=== PATIENT | male | born 1965 | race Caucasian/White ===

== ENCOUNTER 2019-03-17 11:56 | Emergency (ER) | payer MEDICAID, OTHER ==
[~2019-03-17] VITALS: Ht 180.3 cm; Wt 106.5 kg
[2019-03-17 12:39] LABS: BASOPHILS # (AUTO) 0.1 X10'3 (0-0.2); BASOPHILS % (AUTO) 1.1 % (0-1); EOSINOPHILS # (AUTO) 0.1 X10'3 (0-0.9); EOSINOPHILS % (AUTO) 1.6 % (0-6); HEMATOCRIT 48.3 % (42.0-52.0); HEMOGLOBIN 16.4 g/dl (14.0-17.9); LYMPHOCYTES # (AUTO) 2.3 X10'3 (1.1-4.8); LYMPHOCYTES % (AUTO) 33.5 % (21-51); MEAN CORPUSCULAR VOLUME 88.3 FL (78-98); MEAN PLATELET VOLUME 8.4 FL (7.4-10.4); MONOCYTES # (AUTO) 0.6 X10'3 (0-0.9); MONOCYTES % (AUTO) 8.2 % (2-12); NEUTROPHILS # (AUTO) 3.9 X10'3 (1.8-7.7); NEUTROPHILS % (AUTO) 55.6 % (42-75); PLATELET COUNT 236 X10'3 (140-440); RED BLOOD COUNT 5.47 X10'6 (4.70-6.10); RED CELL DISTRIBUTION WIDTH 13.9 % (11.5-14.5)
[2019-03-17 12:51] LABS: ALANINE AMINOTRANSFERASE 49 U/L (12-78); ALBUMIN 3.9 G/DL (3.4-5.0); ALKALINE PHOSPHATASE 99 IU/L (46-116); ANION GAP 9 (8-16); ASPARTATE AMINO TRANSFERASE 28 U/L (10-37); BILIRUBIN,TOTAL 0.7 MG/DL (0.1-1.0); BLOOD UREA NITROGEN 11 MG/DL (7-18); CHLORIDE 105 MMOL/L (99-107); GLUCOSE 95 MG/DL (70-104); POTASSIUM 3.9 MMOL/L (3.5-5.1); SODIUM 141 MMOL/L (135-145); TOTAL CARBON DIOXIDE 27.3 MMOL/L (24-32); TOTAL PROTEIN 7.9 G/DL (6.4-8.2); eGFR 78 ML/MIN
--- NOTE | 2019-03-17 13:29 | NUR ---
has hx of stent placement having sharp L lat lower chest has been going on for about a week and it is getting worse as time goes on
[2019-03-17] MEDS ORDERED: mag hydrox/Alum hydrox/simeth 30ml oral suspension PO ONE (13:50)
[2019-03-17] MEDS ORDERED: acetaminophen 325mg tablet PO ONE ×2 (13:50→13:55)
[2019-03-17] MEDS ORDERED: LIDOcaine Viscous 15ml cup MM PRN (13:50)
[2019-03-17 16:09] VITALS: BP 142/98
== END 2019-03-17 16:13 | disposition home or self-care (01) ==
LOC: ER 11:57
DX: R07.89 Other chest pain (principal); R05 Cough; R10.9 Unspecified abdominal pain; I25.10 Atherosclerotic heart disease of native coronary artery without angina pectoris; Z79.899 Other long term (current) drug therapy; Z98.61 Coronary angioplasty status
CPT/HCPCS: 36415; 71045; 80053; 84484; 85025; 93005; 99284

== ENCOUNTER 2019-12-05 08:59 | Emergency (ER) | payer MEDICAID, OTHER ==
[~2019-12-05] VITALS: Ht 180.3 cm; Wt 110.0 kg
[2019-12-05] MEDS ORDERED: ondansetron/PF 4mg/2ml inj IV ONE (09:40)
[2019-12-05] MEDS ORDERED: morphine 4 MG/ML inj SYRINge IV ONE (09:40)
[2019-12-05] MEDS ORDERED: normal saline 1000ML IV soln IVB ONE (09:45)
[2019-12-05] MEDS ORDERED: propofol 10mg/ml 20ml vial IV ONE (09:45)
[2019-12-05] MEDS ORDERED: propofol 1000mg/100ml bottle 100 ML IV PRN (09:49)
[2019-12-05 12:27] VITALS: BP 141/96
== END 2019-12-05 12:32 | disposition home or self-care (01) ==
LOC: ER 08:59
DX: S43.005A Unspecified dislocation of left shoulder joint, initial encounter (principal); S42.142A Displaced fracture of glenoid cavity of scapula, left shoulder, initial encounter for closed fracture; S42.152A Displaced fracture of neck of scapula, left shoulder, initial encounter for closed fracture; I25.10 Atherosclerotic heart disease of native coronary artery without angina pectoris; Z98.890 Other specified postprocedural states; W01.0XXA Fall on same level from slipping, tripping and stumbling without subsequent striking against object, initial encounter; Y93.01 Activity, walking, marching and hiking; Y92.89 Other specified places as the place of occurrence of the external cause; Y99.8 Other external cause status
CPT/HCPCS: 23650; 73020; 73030; 96361; 96374; 96375; 99152; 99285; J2270; J2405; J7030; 94760; 99284

== ENCOUNTER 2023-03-15 16:44 | Inpatient (IN) | payer MEDICAID ==
[~2023-03-15] VITALS: Ht 182.9 cm; Wt 103.4 kg
[~2023-03-15 16:44] MED LIST: heparin 10,000 units/1 ML INJ ONE; papaverine 30 mg/ml 2ml inj. ONE
[2023-03-15] MEDS ORDERED: heparin, porcine-25,000 units/D5-250ml premix IV ONE (17:30)
[2023-03-15] MEDS ORDERED: heparin 1,000 units/ml 10ml inj ONE (17:30)
[2023-03-15 17:38] LABS: BASOPHILS # (AUTO) 0.1 X10'3 (0-0.2); BASOPHILS % (AUTO) 0.5 % (0-1); EOSINOPHILS # (AUTO) 0.1 X10'3 (0-0.9); EOSINOPHILS % (AUTO) 0.6 % (0-6); HEMATOCRIT 46.6 % (42.0-52.0); LYMPHOCYTES % (AUTO) 19.4 % (21-51); MEAN CORPUSCULAR HEMOGLOBIN 29.6 PG (27.0-31.0); MEAN CORPUSCULAR HGB CONC 34.3 g/dL (33.0-36.5); MEAN CORPUSCULAR VOLUME 86.2 FL (78-98); MEAN PLATELET VOLUME 9.6 FL (7.4-10.4); MONOCYTES # (AUTO) 0.8 X10'3 (0-0.9); MONOCYTES % (AUTO) 8.4 % (2-12); NEUTROPHILS # (AUTO) 7.2 X10'3 (1.8-7.7); NEUTROPHILS % (AUTO) 71.1 % (42-75); PLATELET COUNT 165 X10'3 (140-440); RED CELL DISTRIBUTION WIDTH 13.5 % (11.5-14.5); WHITE BLOOD COUNT 10.1 X10'3 (4.5-11.0)
[2023-03-15 17:51] LABS: ALANINE AMINOTRANSFERASE 186 U/L (12-78); ALBUMIN 3.5 G/DL (3.4-5.0); ALKALINE PHOSPHATASE 146 IU/L (46-116); ANION GAP 9 (8-16); ASPARTATE AMINO TRANSFERASE 282 U/L (10-37); BILIRUBIN,TOTAL 0.7 MG/DL (0.1-1.0); BLOOD UREA NITROGEN 10 MG/DL (7-18); BUN/CREATININE RATIO 10.4 (10.0-20.0); CALCIUM 9.1 MG/DL (8.5-10.1); CHLORIDE 96 MMOL/L (99-107); CREATININE 0.96 MG/DL (0.60-1.10); GLUCOSE 392 MG/DL (70-104); POTASSIUM 3.8 MMOL/L (3.5-5.1); SODIUM 132 MMOL/L (135-145); TOTAL CARBON DIOXIDE 26.7 MMOL/L (24-32); TOTAL PROTEIN 7.1 G/DL (6.4-8.2); eCRCL 92 ML/MIN; eGFR 80 ML/MIN
[2023-03-15 17:58] LABS: PRO BRAIN NATRIURETIC PEPTIDE 841 PG/ML (0-125)
[2023-03-15] MEDS ORDERED: heparin 10,000 units/1 ML INJ IV SCH (18:45)
[2023-03-15] MEDS ORDERED: heparin 10,000 units/1 ML INJ IV ONE ×2 (18:45→19:10)
[2023-03-15] MEDS ORDERED: aspirin 81mg tab.chew PO ONE (18:50)
[2023-03-15 18:59] LABS: MAGNESIUM 1.9 MG/DL (1.5-2.4)
--- NOTE | 2023-03-15 19:05 | NUR ---
Heparing bolus 4000 units per cardiac heparin protocol. Heparin drip running at 1000 units/hr per protocol
[2023-03-15] MEDS ORDERED: ringers solution, lacted 1,000 ML IV ONE ×2 (19:10)
[2023-03-15] MEDS ORDERED: NO HOME MEDS (19:10)
[2023-03-15] MEDS ORDERED: iohexol 350MG/ML 100ml bottle IV ONE (19:17)
[2023-03-15 19:35] LABS: INR 0.9 INR
[2023-03-15] MEDS ORDERED: magnesium Cl slow-release 64mg tablet PO PRN (19:35)
[2023-03-15] MEDS ORDERED: magnesium hydroxide 30ml (MOM) UD suspension PO PRN (19:35)
[2023-03-15] MEDS ORDERED: ondansetron/PF 4mg/2ml inj IV PRN (19:35)
[2023-03-15] MEDS ORDERED: HYDROcodone/acetaminophen 10/325mg tab PO PRN (19:35)
[2023-03-15] MEDS ORDERED: acetaminophen 325mg tablet PO PRN (19:35)
[2023-03-15] MEDS ORDERED: mag hydrox/Alum hydrox/simeth 30ml oral suspension PO PRN (19:35)
[2023-03-15] MEDS ORDERED: HYDROcodone/acetaminophen 5mg/325mg tablet PO PRN (19:35)
[2023-03-15] MEDS ORDERED: magnesium 2GM in 50ml NS 50 ML IV PRN (19:35)
[2023-03-15] MEDS ORDERED: potassium Cl 40MEQ/1/2NS 520ml 520 ML IV PRN (19:35)
[2023-03-15] MEDS ORDERED: potassium Cl 20 mEq SR tablet PO PRN ×2 (19:35)
[2023-03-15] MEDS ORDERED: magnesium 4gm in 100ml NS 100 ML IV PRN (19:35)
[2023-03-15 19:37] LABS: APTT 25 SECONDS (22-32); PROTHROMBIN TIME 9.9 SECONDS (9.0-12.0)
[2023-03-15] MEDS ORDERED: MESSAGE TO PHARMACY PO ONE (19:40)
[2023-03-15] MEDS ORDERED: dextrose 50%-water 50ml dispensing syringe IV PRN ×2 (19:40)
[2023-03-15] MEDS ORDERED: glucagon, human recombinant 1mg kit SUBCUT PRN (19:40)
[2023-03-15] MEDS ORDERED: DEXTROSE 15 GM of carb/4 tabs (each vial/BOTTLE has 4 tablets) PO PRN ×2 (19:40)
[2023-03-15] MEDS: heparin 25,000 UNIT/250ml bag 250 ML IV PRN (19:54)
[2023-03-15] MEDS: K and/or MAG REPLACEMENT MC SCH (19:59)
[2023-03-15] MEDS: docusate sod 100mg capsule PO SCH (20:00)
--- NOTE | 2023-03-15 20:10 | NUR ---
Dr Lewis, Card Punching Machine Operator, at patient bedside. Plan to take patient to lab support tech tomorrow AM at 1000.
[2023-03-15] MEDS ORDERED: metoprolol tartrate 50mg tablet PO SCH (20:20)
--- NOTE | 2023-03-15 20:23 | NUR ---
Per Dr. Lewis, pt will go to cathode builder tomorrow at 10:00 am
[2023-03-15 21:01] LABS: BILIRUBIN,URINE NEGATIVE (Neg); CLARITY,URINE CLEAR (Clear); COLOR,URINE STRAW (Yellow); GLUCOSE, URINE >=1000 mg/dl (Neg); LEUKOCYTE ESTERASE ,URINE NEGATIVE (Neg); NITRITES, URINE NEGATIVE (Neg); OCCULT BLOOD,URINE TRACE-INTACT (Neg); PROTEIN,URINE NEGATIVE (Neg); UROBILINOGEN,URINE 0.2 E.U/dL (0.2-1.0)
[2023-03-15 21:06] LABS: UA COLLECTION TYPE OTHER
[2023-03-15 21:07] LABS: HEMOGLOBIN A1C 11.9 % (4.5-6.2)
[2023-03-15 21:07] LABS: KETONES,URINE >80 mg/dl (Neg)
[2023-03-15 21:08] LABS: RBC,URINE 0-2 /HPF (0-2); SQUAMOUS EPITHELIAL CELL,UR NONE SEEN /LPF (FEW); WBC,URINE 0-4 /HPF (0-4)
[2023-03-15 21:09] LABS: BACTERIA,URINE FEW /HPF (Neg)
[2023-03-15 21:15] LABS: URINE AMPHETAMINE SCREEN NEGATIVE (Neg); URINE BARBITUATE SCREEN NEGATIVE (Neg); URINE BENZODIAZEPINES SCREEN NEGATIVE (Neg); URINE CANNABINOID SCREEN POSITIVE (Neg); URINE COCAINE SCREEN NEGATIVE (Neg); URINE METHADONE SCREEN NEGATIVE (Neg); URINE OPIATE SCREEN NEGATIVE (Neg); URINE PHENCYCLIDINE SCREEN NEGATIVE (Neg)
--- NOTE | 2023-03-15 21:31 | NUR ---
Patient in room ED 5. I have received report from Jillian AWAD and had the opportunity to ask questions and awaiting patients arrival
[2023-03-15 22:00] VITALS: BP 121/89; PULSE 82; RESP 14; TEMP 97.6; O2SAT 96
[2023-03-15] MEDS: insulin glargine (Lantus) pen - multi-dose SQ SCH (22:13)
[2023-03-15] MEDS: atorvastatin 20mg tablet PO SCH (22:16)
--- NOTE | 2023-03-15 22:55 | NUR ---
patients troponin [id number] Dereck remy.
[2023-03-15] MEDS: insulin Lispro (HumaLOG) vial - multi-dose SQ SCH (23:40)
[2023-03-16] VITALS (15 sets, daily range): BP systolic 83–129; BP diastolic 53–82; PULSE 59–90; RESP 9–18; TEMP 97.5–97.9; O2SAT 92–98
[2023-03-16 01:07] LABS: APTT 32 SECONDS (22-32)
[2023-03-16] MEDS: heparin 10,000 units/1 ML INJ IV PRN ×2 (01:43→22:02)
--- NOTE | 2023-03-16 04:31 | NUR ---
patient resting comfortABLY NO COMPLAINTS
--- NOTE | 2023-03-16 06:00 | NUR ---
st elevation noted on tele Addendum: 03/16/23 at 0721 by Linn Flowers RN Amended: Links added.
--- NOTE | 2023-03-16 06:15 | NUR ---
Patient in room PCU 3012B. I have received report from NOC RN Ana Cristina and had the opportunity to ask questions and assume patient care.Pt is awake, resting comfortably in bed and is aware of upcoming procedure at 1000.
[2023-03-16 06:47] LABS: BASOPHILS # (AUTO) 0.1 X10'3 (0-0.2); BASOPHILS % (AUTO) 0.6 % (0-1); EOSINOPHILS # (AUTO) 0.1 X10'3 (0-0.9); EOSINOPHILS % (AUTO) 0.9 % (0-6); HEMATOCRIT 44.1 % (42.0-52.0); HEMOGLOBIN 14.8 g/dl (14.0-17.9); LYMPHOCYTES # (AUTO) 2.5 X10'3 (1.1-4.8); LYMPHOCYTES % (AUTO) 30.2 % (21-51); MEAN CORPUSCULAR HEMOGLOBIN 29.2 PG (27.0-31.0); MEAN CORPUSCULAR HGB CONC 33.5 g/dL (33.0-36.5); MEAN PLATELET VOLUME 10.6 FL (7.4-10.4); MONOCYTES # (AUTO) 0.9 X10'3 (0-0.9); MONOCYTES % (AUTO) 10.8 % (2-12); NEUTROPHILS # (AUTO) 4.8 X10'3 (1.8-7.7); NEUTROPHILS % (AUTO) 57.5 % (42-75); PLATELET COUNT 149 X10'3 (140-440); RED BLOOD COUNT 5.07 X10'6 (4.70-6.10); RED CELL DISTRIBUTION WIDTH 13.3 % (11.5-14.5); WHITE BLOOD COUNT 8.4 X10'3 (4.5-11.0)
--- NOTE | 2023-03-16 06:51 | NUR ---
Problems reprioritized. Patient report given, questions answered & plan of care reviewed with Linn AWAD. patient prepared for lab technologist today at 10am..
[2023-03-16 07:06] LABS: ALANINE AMINOTRANSFERASE 146 U/L (12-78); ALBUMIN 3.1 G/DL (3.4-5.0); ALBUMIN/GLOBULIN RATIO 0.8 (1.1-1.5); ALKALINE PHOSPHATASE 141 IU/L (46-116); ANION GAP 6 (8-16); ASPARTATE AMINO TRANSFERASE 174 U/L (10-37); BLOOD UREA NITROGEN 6 MG/DL (7-18); BUN/CREATININE RATIO 6.7 (10.0-20.0); CALCIUM 8.9 MG/DL (8.5-10.1); CHLORIDE 100 MMOL/L (99-107); CREATININE 0.89 MG/DL (0.60-1.10); GLUCOSE 264 MG/DL (70-104); MAGNESIUM 1.9 MG/DL (1.5-2.4); POTASSIUM 3.6 MMOL/L (3.5-5.1); SODIUM 136 MMOL/L (135-145); TOTAL CARBON DIOXIDE 29.7 MMOL/L (24-32); TOTAL PROTEIN 6.8 G/DL (6.4-8.2); eCRCL 99 ML/MIN; eGFR 88 ML/MIN
[2023-03-16] MEDS: atorvastatin 20mg tablet PO SCH (08:00)
[2023-03-16] MEDS ORDERED: aspirin 81mg, enteric-coated 1 TAB TABLET.DR PO SCH (08:00)
[2023-03-16] MEDS: K and/or MAG REPLACEMENT MC SCH ×2 (08:00→20:00)
[2023-03-16] MEDS: metoprolol tartrate 12.5mg (1/2 tablet) PO SCH ×2 (08:00→20:00)
[2023-03-16] MEDS: docusate sod 100mg capsule PO SCH ×2 (08:00→20:00)
[2023-03-16] MEDS: insulin Lispro (HumaLOG) vial - multi-dose SQ SCH ×3 (08:33→18:04)
[2023-03-16] MEDS ORDERED: midazolam 1 mg/ML 2ml injection ONE ×2 (09:09→10:21)
[2023-03-16] MEDS ORDERED: LIDOcaine 1% (10mg/ml)w/preservative inj. 20ml MDV ONE (09:09)
[2023-03-16] MEDS ORDERED: iohexol 350 MG/ML 50ML vial IV ONE (09:09)
[2023-03-16] MEDS ORDERED: fentaNYL/PF 50MCG/1 ML 2ML syringe ONE (09:09)
[2023-03-16] MEDS ORDERED: iohexol 350MG/ML 100ml bottle IV ONE (09:09)
[2023-03-16] MEDS ORDERED: heparin 1,000unit/ml 10ml vial 10 ML ONE (09:09)
[2023-03-16] MEDS ORDERED: nitroGLYCERIN 500mcg/5mL D5W 0 ML IV ONE (09:12)
[2023-03-16] MEDS ORDERED: tirofiban 12.5mg in NS 250mL 0 ML IV ONE (09:12)
--- NOTE | 2023-03-16 09:35 | NUR ---
Patient report given at bedside to 2 RNs from laboratory courier. Pt was NPO since midnight. Questions answered. Pt taken to laboratory courier by wheelchair for cardiac cath to be done by Dr. Lewis. Pt is A&Ox4, in no apparent distress.
--- NOTE | 2023-03-16 10:59 | NUR ---
Per EMR pt with T2DM, current A1c 11.9%. Attempted visit with pt at bedside however pt out if room and in labor expediter per EMR. Pt would benefit from DM education as able. Will continue to follow. Addendum: 03/16/23 at [address] Amended: Links added.
--- NOTE | 2023-03-16 11:17 | NUR ---
Rec'd phone call from DELMI Rice in chemical processing laborer. Pt is going to ICU s/p cardiac cath. Will send belongings to ICU.
[2023-03-16] MEDS ORDERED: heparin 25,000 UNIT/250ml bag 250 ML IV ONE (11:43)
[2023-03-16] MEDS ORDERED: acetaminophen 325mg tablet PO PRN ×2 (12:40)
[2023-03-16] MEDS ORDERED: magnesium hydroxide 30ml (MOM) UD suspension PO PRN (12:40)
[2023-03-16] MEDS ORDERED: OXAZEpam 15mg capsule PO PRN (12:40)
[2023-03-16] MEDS ORDERED: proCHLORperazine 10 MG/2 ml inj IV PRN (12:40)
[2023-03-16] MEDS ORDERED: nitroGLYCERIN 0.4mg SUBLingual tab SL PRN (12:40)
[2023-03-16] MEDS ORDERED: morphine 10mg/ml inj. IV PRN (12:40)
[2023-03-16] MEDS: normal saline 1000ml 1,000 ML IV SCH (12:45)
[2023-03-16] MEDS: aspirin 81mg tab.chew PO SCH (14:00)
[2023-03-16] MEDS: HYDROcodone/acetaminophen 10/325mg tab PO PRN ×2 (14:02→20:16)
[2023-03-16] MEDS ORDERED: MESSAGE TO PHARMACY PO ONE (14:05)
[2023-03-16] MEDS ORDERED: dextrose 50%-water 50ml dispensing syringe IV PRN ×2 (14:05)
[2023-03-16] MEDS ORDERED: glucagon, human recombinant 1mg kit SUBCUT PRN (14:05)
[2023-03-16] MEDS ORDERED: DEXTROSE 15 GM of carb/4 tabs (each vial/BOTTLE has 4 tablets) PO PRN ×2 (14:05)
--- NOTE | 2023-03-16 18:30 | NUR ---
Patient in room ICU 2040. I have received report from Andres AWAD and had the opportunity to ask questions and assume patient care.
--- NOTE | 2023-03-16 19:00 | NUR ---
Spoke with Dr Moreno regarding lopressor. Order to hold Lopressor if BP systolic below 100.
[2023-03-16] MEDS ORDERED: heparin 10,000 units/1 ML INJ IJ SCH (20:00)
[2023-03-16] MEDS: cyclobenzaprine 10mg tablet PO PRN (20:16)
[2023-03-16] MEDS: insulin glargine (Lantus) pen - multi-dose SQ SCH ×2 (20:23→20:42)
[2023-03-17] VITALS (24 sets, daily range): BP systolic 85–119; BP diastolic 50–83; PULSE 54–91; RESP 10–22; O2SAT 92–97
[2023-03-17] MEDS: heparin 25,000 UNIT/250ml bag 250 ML IV PRN ×2 (04:09→21:03)
[2023-03-17 05:03] LABS: BASOPHILS % (AUTO) 0.7 % (0-1); EOSINOPHILS # (AUTO) 0.1 X10'3 (0-0.9); EOSINOPHILS % (AUTO) 1.1 % (0-6); HEMATOCRIT 44.4 % (42.0-52.0); LYMPHOCYTES # (AUTO) 2.4 X10'3 (1.1-4.8); MEAN CORPUSCULAR HEMOGLOBIN 29.5 PG (27.0-31.0); MEAN CORPUSCULAR HGB CONC 33.8 g/dL (33.0-36.5); MEAN CORPUSCULAR VOLUME 87.3 FL (78-98); MEAN PLATELET VOLUME 10.3 FL (7.4-10.4); MONOCYTES # (AUTO) 0.6 X10'3 (0-0.9); MONOCYTES % (AUTO) 8.9 % (2-12); NEUTROPHILS # (AUTO) 3.9 X10'3 (1.8-7.7); NEUTROPHILS % (AUTO) 55.3 % (42-75); PLATELET COUNT 147 X10'3 (140-440); RED BLOOD COUNT 5.09 X10'6 (4.70-6.10); RED CELL DISTRIBUTION WIDTH 13.7 % (11.5-14.5); WHITE BLOOD COUNT 7.1 X10'3 (4.5-11.0)
[2023-03-17 05:19] LABS: ALANINE AMINOTRANSFERASE 119 U/L (12-78); ALBUMIN 2.9 G/DL (3.4-5.0); ALBUMIN/GLOBULIN RATIO 0.7 (1.1-1.5); ALKALINE PHOSPHATASE 153 IU/L (46-116); ANION GAP 5 (8-16); ASPARTATE AMINO TRANSFERASE 85 U/L (10-37); BILIRUBIN,TOTAL 0.8 MG/DL (0.1-1.0); BLOOD UREA NITROGEN 8 MG/DL (7-18); BUN/CREATININE RATIO 9.5 (10.0-20.0); CHLORIDE 99 MMOL/L (99-107); CREATININE 0.84 MG/DL (0.60-1.10); GLUCOSE 233 MG/DL (70-104); POTASSIUM 3.7 MMOL/L (3.5-5.1); SODIUM 133 MMOL/L (135-145); TOTAL CARBON DIOXIDE 28.8 MMOL/L (24-32); TOTAL PROTEIN 6.9 G/DL (6.4-8.2); eCRCL 105 ML/MIN; eGFR > 90 ML/MIN
[2023-03-17 05:24] LABS: CHOL/HDL RATIO 4.8 (0.00-4.99); CHOLESTEROL 282 MG/DL (0-200); HDL CHOLESTEROL 59 MG/DL (35-60); LDL CHOLESTEROL 164 MG/DL (50-100); MAGNESIUM 1.8 MG/DL (1.5-2.4); TRIGLYCERIDES 247 MG/DL (20-135)
[2023-03-17] MEDS: heparin 10,000 units/1 ML INJ IV PRN ×2 (05:26→16:29)
--- NOTE | 2023-03-17 06:14 | NUR ---
Problems reprioritized. Patient report given, questions answered & plan of care reviewed with Andres AWAD.
[2023-03-17] MEDS: atorvastatin 20mg tablet PO SCH (07:32)
[2023-03-17] MEDS: aspirin 81mg tab.chew PO SCH (07:32)
[2023-03-17] MEDS: docusate sod 100mg capsule PO SCH ×2 (07:32→20:15)
[2023-03-17] MEDS ORDERED: cefazolin/dext.iso 2gm/50ml 50 ML IV ONE (08:20)
[2023-03-17] MEDS ORDERED: MESSAGE TO PHARMACY IJ ONE (08:20)
[2023-03-17] MEDS ORDERED: dextrose 50%-water 50ml dispensing syringe IV PRN (08:20)
[2023-03-17] MEDS: insulin Lispro (HumaLOG) vial - multi-dose SQ SCH ×3 (08:35→20:30)
[2023-03-17] MEDS: metoprolol tartrate 12.5mg (1/2 tablet) PO SCH ×2 (08:36→19:26)
[2023-03-17] MEDS: K and/or MAG REPLACEMENT MC SCH ×2 (08:39→20:00)
[2023-03-17] MEDS ORDERED: MESSAGE TO NURSING PO ONE (10:00)
[2023-03-17] MEDS ORDERED: ringers solution, lacted 1,000 ML IV ONE (17:10)
[2023-03-17 17:29] LABS: ABG HCO3 26.4 mmol/L (22.0-26.0); ABG PCO2 (T) 35.3 mmHg (35.0-48.0); ABG PH (T) 7.488 (7.340-7.440); ABG PO2 (T) 58.9 mmHg (75.0-100.0); ALLEN'S TEST POSITIVE; FCOHb 1.4 % (0.0-3.9); FHHb 5.9 % (0.0-5.0); FLOW 0 L/min; FMetHb 0.1 % (0.0-1.5); FO2Hb 92.6 % (94-97); MODE ROOM AIR; TOTAL HEMOGLOBIN 15.4 G/dl (14.0-17.9)
[2023-03-17] MEDS: cyclobenzaprine 10mg tablet PO PRN (18:40)
[2023-03-17] MEDS: HYDROcodone/acetaminophen 10/325mg tab PO PRN (18:40)
[2023-03-17] MEDS: mupirocin 2% nasal ointment 1gm UD NS SCH (19:26)
[2023-03-17] MEDS: insulin glargine (Lantus) pen - multi-dose SQ SCH (20:28)
--- NOTE | 2023-03-17 21:05 | NUR ---
heparin gtt running at 1700 units/hr at 1800. adjustment made for 2100 ptt now at 1600units/hour
--- NOTE | 2023-03-17 22:14 | NUR ---
bath completed per policy
[2023-03-18] VITALS (27 sets, daily range): BP systolic 83–139; BP diastolic 43–94; PULSE 56–102; RESP 11–26; TEMP 97.8–98.5; O2SAT 94–100
[2023-03-18] MEDS: HYDROcodone/acetaminophen 10/325mg tab PO PRN ×2 (00:08→04:33)
[2023-03-18] MEDS: heparin 25,000 UNIT/250ml bag 250 ML IV PRN (00:10)
[2023-03-18 03:14] LABS: BASOPHILS # (AUTO) 0.1 X10'3 (0-0.2); BASOPHILS % (AUTO) 0.8 % (0-1); EOSINOPHILS # (AUTO) 0.1 X10'3 (0-0.9); EOSINOPHILS % (AUTO) 1.4 % (0-6); HEMATOCRIT 41.5 % (42.0-52.0); LYMPHOCYTES # (AUTO) 2.7 X10'3 (1.1-4.8); LYMPHOCYTES % (AUTO) 34.6 % (21-51); MEAN CORPUSCULAR HEMOGLOBIN 29.4 PG (27.0-31.0); MEAN CORPUSCULAR HGB CONC 33.7 g/dL (33.0-36.5); MEAN CORPUSCULAR VOLUME 87.2 FL (78-98); MEAN PLATELET VOLUME 9.8 FL (7.4-10.4); MONOCYTES # (AUTO) 0.7 X10'3 (0-0.9); MONOCYTES % (AUTO) 9.4 % (2-12); NEUTROPHILS # (AUTO) 4.1 X10'3 (1.8-7.7); NEUTROPHILS % (AUTO) 53.8 % (42-75); PLATELET COUNT 133 X10'3 (140-440); RED BLOOD COUNT 4.76 X10'6 (4.70-6.10); RED CELL DISTRIBUTION WIDTH 13.8 % (11.5-14.5); WHITE BLOOD COUNT 7.7 X10'3 (4.5-11.0)
[2023-03-18 03:25] LABS: ALANINE AMINOTRANSFERASE 88 U/L (12-78); ALBUMIN 2.7 G/DL (3.4-5.0); ALBUMIN/GLOBULIN RATIO 0.7 (1.1-1.5); ALKALINE PHOSPHATASE 158 IU/L (46-116); ANION GAP 6 (8-16); ASPARTATE AMINO TRANSFERASE 43 U/L (10-37); BILIRUBIN,TOTAL 0.6 MG/DL (0.1-1.0); BLOOD UREA NITROGEN 10 MG/DL (7-18); BUN/CREATININE RATIO 11.8 (10.0-20.0); CALCIUM 8.6 MG/DL (8.5-10.1); CHLORIDE 101 MMOL/L (99-107); CREATININE 0.85 MG/DL (0.60-1.10); GLUCOSE 230 MG/DL (70-104); MAGNESIUM 1.8 MG/DL (1.5-2.4); POTASSIUM 3.3 MMOL/L (3.5-5.1); SODIUM 135 MMOL/L (135-145); TOTAL CARBON DIOXIDE 27.9 MMOL/L (24-32); TOTAL PROTEIN 6.5 G/DL (6.4-8.2); eCRCL 104 ML/MIN; eGFR > 90 ML/MIN
[2023-03-18] MEDS ORDERED: MESSAGE TO NURSING PO ONE ×4 (04:00→05:30)
[2023-03-18] MEDS: normal saline 1000ml 1,000 ML IV SCH (04:45)
[2023-03-18] MEDS ORDERED: insulin glargine (Lantus) pen - multi-dose SQ PRN (05:30)
[2023-03-18] MEDS ORDERED: gabapentin 400mg capsule PO ONE (05:30)
[2023-03-18] MEDS ORDERED: cefazolin/dext.iso 2gm/50ml 50 ML IV ONE (05:30)
[2023-03-18] MEDS ORDERED: famotidine 20mg tablet PO ONE (06:00)
[2023-03-18] MEDS ORDERED: LORazepam 2 mg/ml vial IV ONE (06:00)
--- NOTE | 2023-03-18 06:30 | NUR ---
Pre op checklist done, consents obtained, required info placed on chart.
[2023-03-18] MEDS ORDERED: BUPIVACAINE liposomal/PF 13.3 MG/ML vial IM ONE ×2 (06:34→07:00)
[2023-03-18] MEDS ORDERED: epiNEPHrine 1 mg/ml inj ONE (06:34)
[2023-03-18] MEDS ORDERED: BUPIVAcaine 0.5% inj/PF 30 ML ONE (06:34)
[2023-03-18] MEDS ORDERED: ceFAZolin 1000mg inj ONE ×3 (06:34→14:53)
[2023-03-18] MEDS ORDERED: papaverine 30 mg/ml 2ml inj. ICAR ONE (07:00)
[2023-03-18] MEDS ORDERED: ceFAZolin 1000mg inj IR ONE (07:00)
[2023-03-18] MEDS ORDERED: epiNEPHrine 1 MG/ML 1 ml ampule **BRONCH ONLY SQ ONE (07:00)
[2023-03-18] MEDS ORDERED: BUPIVAcaine 0.5% inj/PF 30 ml vial IJ ONE (07:00)
[2023-03-18] MEDS ORDERED: heparin 10,000 units/1 ML INJ IV ONE (07:00)
[2023-03-18] MEDS: insulin Lispro (HumaLOG) vial - multi-dose SQ SCH (07:16)
[2023-03-18] MEDS: metoprolol tartrate 12.5mg (1/2 tablet) PO SCH ×2 (07:32→20:00)
[2023-03-18] MEDS: atorvastatin 20mg tablet PO SCH (07:33)
[2023-03-18] MEDS: K and/or MAG REPLACEMENT MC SCH ×2 (07:33→20:00)
[2023-03-18] MEDS: docusate sod 100mg capsule PO SCH ×2 (07:33→20:00)
[2023-03-18] MEDS ORDERED: SUfentanil 50mcg/ml 1ml amp IV ONE ×2 (07:36→09:55)
[2023-03-18] MEDS ORDERED: MIDAZolam 1 MG/ML 5ML VIAL ONE (07:36)
[2023-03-18] MEDS ORDERED: propofol inj 20 ML IV ONE (07:36)
[2023-03-18] MEDS ORDERED: rocuronium 10mg/ml inj IV ONE ×4 (07:37→10:56)
[2023-03-18] MEDS: mupirocin 2% nasal ointment 1gm UD NS SCH ×2 (07:39→20:39)
[2023-03-18] MEDS: aspirin 81mg tab.chew PO SCH (08:00)
--- NOTE | 2023-03-18 08:05 | NUR ---
Pt. to CVOR with OR crew. Pt's son and mother in to see pt. briefly prior to CVOR crew arrival.
[2023-03-18] MEDS ORDERED: DOBUTamine/D5W 500mg/250ml premix IV ONE (08:07)
[2023-03-18] MEDS ORDERED: albumin (Human) 5% 250ml BOTTLE IV ONE (08:07)
[2023-03-18] MEDS ORDERED: amiodarone 50MG/ML inj IV ONE (08:07)
[2023-03-18] MEDS ORDERED: LIDOcaine 2% (20mg/ml) 5ml vial ONE (08:07)
[2023-03-18] MEDS ORDERED: protamine sulf. 10mg/ml inj. IV ONE (08:07)
[2023-03-18] MEDS ORDERED: sevoflurane 250ml liquid IH ONE (08:07)
[2023-03-18] MEDS ORDERED: INSULIN R 100 UNIT in NS 100ML (1 UNIT/1 ML) BAG IV ONE (08:07)
[2023-03-18] MEDS ORDERED: NORepinephrine 8 MG in NS 250 ML BAG (32 mcg/ml) IV ONE (08:07)
[2023-03-18 09:40] LABS: ABG BASE EXCESS -0.4 mmol/L (-2.0-2.0); ABG HCO3 26.3 mmol/L (22.0-26.0); ABG OXYGEN SATURATION 99.2 % (94-97); ABG PCO2 51.3 mmHg (35.0-48.0); ABG PH 7.328 (7.340-7.440); CL (ABG) 103 mmol/L (99-107); FCOHb 0.2 % (0.0-3.9); FHHb 0.8 % (0.0-5.0); FMetHb 0.3 % (0.0-1.5); FO2Hb 98.7 % (94-97); GLUCOSE (ABG) 187 mg/dl (70-104); IONIZED CA (ABG) 1.17 mmol/L (1.10-1.30); K (ABG) 3.6 mmol/L (3.5-5.1); TOTAL HEMOGLOBIN 14.3 G/dl (14.0-17.9)
[2023-03-18] MEDS ORDERED: gelatin sponge, absorbable (Gelfoam 100) sponge TP ONE (10:14)
[2023-03-18 10:32] LABS: ACT @ 1.70 U 265 SEC (193-297); ACT @ 2.84 U 364 SEC (260-420); BASELINE ACT 148 SEC (101-148); PATIENT WEIGHT 91.0k KG
[2023-03-18] MEDS ORDERED: albumin (human) 25% 100 ML IV solution IV ONE (12:00)
[2023-03-18] MEDS ORDERED: aminocaproic acid 250 MG/1 ML inj. ONE (12:00)
[2023-03-18] MEDS ORDERED: SODIUM BICARBONATE IV ONE (12:00)
[2023-03-18] MEDS ORDERED: methylPREDNISolone sod. succ. 500mg inj ONE (12:00)
[2023-03-18] MEDS ORDERED: calcium chloride 100 MG/1 ML inj IV ONE (12:00)
[2023-03-18] MEDS ORDERED: heparin 1,000 units/ml 10ml inj ONE (12:00)
[2023-03-18] MEDS ORDERED: mannitol 12.5gm/50mL VIAL IV ONE (12:00)
[2023-03-18] MEDS ORDERED: D5W IV ONE (12:00)
[2023-03-18 12:52] LABS: ABG BASE EXCESS 0.8 mmol/L (-2.0-2.0); ABG HCO3 24.4 mmol/L (22.0-26.0); ABG PCO2 35.4 mmHg (35.0-48.0); ABG PH 7.457 (7.340-7.440); ABG PO2 384.5 mmHg (75.0-100.0); CL (ABG) 100 mmol/L (99-107); FCOHb 0.2 % (0.0-3.9); FMetHb 0.3 % (0.0-1.5); FO2Hb 98.5 % (94-97); GLUCOSE (ABG) 129 mg/dl (70-104); IONIZED CA (ABG) 0.93 mmol/L (1.10-1.30); K (ABG) 3.4 mmol/L (3.5-5.1); TOTAL HEMOGLOBIN 10.4 G/dl (14.0-17.9)
[2023-03-18 13:31] LABS: ABG BASE EXCESS VENOUS -1.1 mmol/L (-2.0 - 2.0); ABG HCO3 VENOUS 23.7 mmol/L (21.0-28.0); ABG OXYGEN SATURATION VENOUS 87.4 % (75 - 99 %); ABG PCO2 VENOUS 40.3 mmHg (41.0-54.0); ABG PH (VENOUS) 7.388 (7.310-7.450); ABG PO2 VENOUS 51.2 mmHg (25.0-35.0); CL (ABG) 103 mmol/L (99-107); FCOHb VENOUS 0.3 %; FHHb VENOUS 12.6 %; FO2Hb VENOUS 87.1 %; GLUCOSE (ABG) 153 mg/dl (70-104); IONIZED CA (ABG) 1.03 mmol/L (1.10-1.30); K (ABG) 3.2 mmol/L (3.5-5.1); TOTAL HEMOGLOBIN 11.1 G/dl (14.0-17.9)
[2023-03-18 14:38] LABS: ABG BASE EXCESS -2.7 mmol/L (-2.0-2.0); ABG HCO3 21.9 mmol/L (22.0-26.0); ABG OXYGEN SATURATION 99.2 % (94-97); ABG PCO2 37.5 mmHg (35.0-48.0); ABG PH 7.385 (7.340-7.440); ABG PO2 428.1 mmHg (75.0-100.0); CL (ABG) 105 mmol/L (99-107); FCOHb 0.2 % (0.0-3.9); FHHb 0.8 % (0.0-5.0); FMetHb 0.1 % (0.0-1.5); FO2Hb 98.9 % (94-97); GLUCOSE (ABG) 186 mg/dl (70-104); IONIZED CA (ABG) 1.02 mmol/L (1.10-1.30); K (ABG) 2.9 mmol/L (3.5-5.1)
[2023-03-18 14:56] LABS: ABG HCO3 21.1 mmol/L (22.0-26.0); ABG PCO2 38.8 mmHg (35.0-48.0); ABG PH 7.354 (7.340-7.440); ABG PO2 411.4 mmHg (75.0-100.0); CL (ABG) 106 mmol/L (99-107); FCOHb 0.2 % (0.0-3.9); FMetHb 0.1 % (0.0-1.5); FO2Hb 98.7 % (94-97); GLUCOSE (ABG) 192 mg/dl (70-104); IONIZED CA (ABG) 1.03 mmol/L (1.10-1.30); K (ABG) 3.6 mmol/L (3.5-5.1); TOTAL HEMOGLOBIN 10.6 G/dl (14.0-17.9)
[2023-03-18 15:09] LABS: ABG BASE EXCESS -1.6 mmol/L (-2.0-2.0); ABG HCO3 24.3 mmol/L (22.0-26.0); ABG OXYGEN SATURATION 99.3 % (94-97); ABG PCO2 46.2 mmHg (35.0-48.0); ABG PH 7.339 (7.340-7.440); ABG PO2 444.5 mmHg (75.0-100.0); CL (ABG) 108 mmol/L (99-107); FCOHb 0.2 % (0.0-3.9); FHHb 0.7 % (0.0-5.0); FMetHb 0.3 % (0.0-1.5); FO2Hb 98.8 % (94-97); GLUCOSE (ABG) 210 mg/dl (70-104); IONIZED CA (ABG) 1.01 mmol/L (1.10-1.30); TOTAL HEMOGLOBIN 10.6 G/dl (14.0-17.9)
[2023-03-18 15:53] LABS: ABG BASE EXCESS -4.7 mmol/L (-2.0-2.0); ABG HCO3 20.3 mmol/L (22.0-26.0); ABG OXYGEN SATURATION 99.3 % (94-97); ABG PCO2 37.1 mmHg (35.0-48.0); ABG PH 7.356 (7.340-7.440); ABG PO2 353.5 mmHg (75.0-100.0); CL (ABG) 106 mmol/L (99-107); FCOHb 0.3 % (0.0-3.9); FHHb 0.7 % (0.0-5.0); FMetHb 0.3 % (0.0-1.5); FO2Hb 98.7 % (94-97); GLUCOSE (ABG) 202 mg/dl (70-104); IONIZED CA (ABG) 1.04 mmol/L (1.10-1.30); K (ABG) 3.7 mmol/L (3.5-5.1); TOTAL HEMOGLOBIN 10.3 G/dl (14.0-17.9)
[2023-03-18] MEDS ORDERED: midazolam 1 mg/ML 2ml injection ONE (15:58)
[2023-03-18 16:45] LABS: ABG BASE EXCESS -2.5 mmol/L (-2.0-2.0); ABG HCO3 22.6 mmol/L (22.0-26.0); ABG OXYGEN SATURATION 99.4 % (94-97); ABG PCO2 40.2 mmHg (35.0-48.0); ABG PH 7.367 (7.340-7.440); ABG PO2 405.8 mmHg (75.0-100.0); CL (ABG) 105 mmol/L (99-107); FCOHb 0.3 % (0.0-3.9); FHHb 0.6 % (0.0-5.0); FMetHb 0.3 % (0.0-1.5); FO2Hb 98.8 % (94-97); GLUCOSE (ABG) 227 mg/dl (70-104); IONIZED CA (ABG) 1.23 mmol/L (1.10-1.30); K (ABG) 3.7 mmol/L (3.5-5.1); TOTAL HEMOGLOBIN 9.5 G/dl (14.0-17.9)
[2023-03-18 17:08] LABS: ABG BASE EXCESS VENOUS -3.2 mmol/L (-2.0 - 2.0); ABG OXYGEN SATURATION VENOUS 80.3 % (75 - 99 %); ABG PH (VENOUS) 7.316 (7.310-7.450); ABG PO2 VENOUS 44.5 mmHg (25.0-35.0); CL (ABG) 105 mmol/L (99-107); FCOHb VENOUS 0.1 %; FHHb VENOUS 19.6 %; FMetHb VENOUS 0.3 % (0.0 - 0.5); GLUCOSE (ABG) 214 mg/dl (70-104); IONIZED CA (ABG) 1.17 mmol/L (1.10-1.30); K (ABG) 3.8 mmol/L (3.5-5.1); TOTAL HEMOGLOBIN 10.3 G/dl (14.0-17.9)
[2023-03-18 17:11] LABS: ACTIVATED CLOTTING TIME 125 SEC (101-148)
[2023-03-18] MEDS ORDERED: heparin sodium, porcine/PF 100unit/ml 5ML syringe ONE (17:43)
--- NOTE | 2023-03-18 18:30 | NUR ---
Received to room 2040, accompanied by MDs and surgical crew. Placed on ventilator, to hospital monitor, arterial line and PA line pressure zeroed & monitored. Chest tubes to suction at 20 cm. Abreu cath to gravity drainage. Dressings are dry and intact. See assessment record. All vasoactive drugs are infusing via central line.
[2023-03-18 18:45] LABS: BASOPHILS % (AUTO) 0.2 % (0-1); EOSINOPHILS % (AUTO) 0.1 % (0-6); HEMATOCRIT 30.9 % (42.0-52.0); HEMOGLOBIN 10.5 g/dl (14.0-17.9); LYMPHOCYTES # (AUTO) 0.4 X10'3 (1.1-4.8); LYMPHOCYTES % (AUTO) 4.9 % (21-51); MEAN CORPUSCULAR HEMOGLOBIN 29.8 PG (27.0-31.0); MEAN CORPUSCULAR VOLUME 87.7 FL (78-98); MEAN PLATELET VOLUME 9.1 FL (7.4-10.4); MONOCYTES # (AUTO) 0.5 X10'3 (0-0.9); MONOCYTES % (AUTO) 5.6 % (2-12); NEUTROPHILS # (AUTO) 8.1 X10'3 (1.8-7.7); NEUTROPHILS % (AUTO) 89.2 % (42-75); PLATELET COUNT 100 X10'3 (140-440); RED BLOOD COUNT 3.53 X10'6 (4.70-6.10); RED CELL DISTRIBUTION WIDTH 13.6 % (11.5-14.5)
[2023-03-18 18:57] LABS: ALANINE AMINOTRANSFERASE 49 U/L (12-78); ALBUMIN 2.8 G/DL (3.4-5.0); ALBUMIN/GLOBULIN RATIO 1.2 (1.1-1.5); ALKALINE PHOSPHATASE 88 IU/L (46-116); ANION GAP 6 (8-16); ASPARTATE AMINO TRANSFERASE 54 U/L (10-37); BILIRUBIN,TOTAL 1.1 MG/DL (0.1-1.0); BLOOD UREA NITROGEN 7 MG/DL (7-18); BUN/CREATININE RATIO 8.3 (10.0-20.0); CALCIUM 7.7 MG/DL (8.5-10.1); CHLORIDE 107 MMOL/L (99-107); CREATININE 0.84 MG/DL (0.60-1.10); GLUCOSE 183 MG/DL (70-104); SODIUM 139 MMOL/L (135-145); TOTAL CARBON DIOXIDE 26.3 MMOL/L (24-32); TOTAL PROTEIN 5.1 G/DL (6.4-8.2); eCRCL 105 ML/MIN; eGFR > 90 ML/MIN
[2023-03-18 19:00] LABS: ABG BASE EXCESS 0.3 mmol/L (-2.0-2.0); ABG HCO3 25.7 mmol/L (22.0-26.0); ABG OXYGEN SATURATION 97.6 % (94-97); ABG PCO2 (T) 43.8 mmHg (35.0-48.0); ABG PH (T) 7.384 (7.340-7.440); ABG PO2 (T) 101.1 mmHg (75.0-100.0); FCOHb 0.4 % (0.0-3.9); FHHb 2.4 % (0.0-5.0); FMetHb 0.3 % (0.0-1.5); FO2Hb 96.9 % (94-97); PATIENT TEMPERATURE 36.5; RESPIRATORY RATE 12 b/min; TIDAL VOLUME 600 mL; TOTAL HEMOGLOBIN 11.4 G/dl (14.0-17.9)
[2023-03-18 19:21] LABS: PHOSPHORUS 2.8 MG/DL (2.3-4.5)
[2023-03-18 19:22] LABS: APTT 26 SECONDS (22-32); INR 1.1 INR
[2023-03-18] MEDS ORDERED: potassium Cl 40MEQ/270ML bag 250 ML IV PRN (19:30)
[2023-03-18] MEDS ORDERED: potassium Cl 40MEQ/1/2NS 520ml 520 ML IV PRN (19:30)
[2023-03-18] MEDS ORDERED: potassium Cl 20 mEq SR tablet PO PRN (19:30)
[2023-03-18] MEDS ORDERED: magnesium 4gm in 100ml NS 100 ML IV PRN (19:30)
[2023-03-18] MEDS ORDERED: potassium CL 10mEq/100ml bag 100 ML IV PRN (19:30)
[2023-03-18] MEDS ORDERED: propofol 1000mg/100ml bottle 100 ML IV SCH (19:40)
[2023-03-18] MEDS ORDERED: propofol 1000mg/100ml bottle 100 ML IV ONE (19:44)
[2023-03-18] MEDS: Insulin Reg/NS 100units/100mL 100 ML IV SCH ×2 (20:05→20:34)
[2023-03-18] MEDS: CALCIUM GLUC 1gm/50ml NACL,iso 50 ML IV SCH ×2 (20:06→20:34)
[2023-03-18] MEDS: niCARDipine-NS 40mg/200ml IVPB 200 ML IV SCH (20:06)
[2023-03-18] MEDS ORDERED: normal saline 250ml IV soln 250 ML IV PRN (20:30)
[2023-03-18] MEDS ORDERED: sodium chloride 0.45% 1,000 ML IV SCH (20:30)
[2023-03-18] MEDS: insulin glargine (Lantus) pen - multi-dose SQ SCH (20:35)
[2023-03-18] MEDS ORDERED: DOBUTamine-DoBUTrex 500mg/D5W 250 ML IV SCH (21:05)
[2023-03-18 21:07] LABS: BASOPHILS % (AUTO) 0.1 % (0-1); EOSINOPHILS % (AUTO) 0 % (0-6); HEMATOCRIT 31.3 % (42.0-52.0); HEMOGLOBIN 10.5 g/dl (14.0-17.9); LYMPHOCYTES # (AUTO) 0.3 X10'3 (1.1-4.8); LYMPHOCYTES % (AUTO) 3.2 % (21-51); MEAN CORPUSCULAR HEMOGLOBIN 29.3 PG (27.0-31.0); MEAN CORPUSCULAR HGB CONC 33.5 g/dL (33.0-36.5); MEAN CORPUSCULAR VOLUME 87.3 FL (78-98); MEAN PLATELET VOLUME 8.9 FL (7.4-10.4); MONOCYTES # (AUTO) 0.5 X10'3 (0-0.9); MONOCYTES % (AUTO) 4.8 % (2-12); NEUTROPHILS # (AUTO) 9.5 X10'3 (1.8-7.7); NEUTROPHILS % (AUTO) 91.9 % (42-75); PLATELET COUNT 131 X10'3 (140-440); RED BLOOD COUNT 3.58 X10'6 (4.70-6.10); RED CELL DISTRIBUTION WIDTH 13.7 % (11.5-14.5); WHITE BLOOD COUNT 10.3 X10'3 (4.5-11.0)
[2023-03-18 21:25] LABS: FIBRINOGEN 372 MG/DL (177-424)
[2023-03-18] MEDS ORDERED: vancomycin/NS 1 GM ADD-VANTAGE 250 ML IV ONE (21:55)
--- NOTE | 2023-03-18 22:24 | NUR ---
I have spoken with Dr. Moreno multiple times regarding all care given, all lab values, vital signs, drips and ventilator settings. In short the patient seemed to be oozing quite a bit as evidenced by increased CT output. His hgb and platlets were relatively normal and stable, however, due to fear of bleeding he did have me transfuse a total of 2 platelets (1 was given in CVOR, making 3 total), 1 PRBC, [address] output seems to have dropped off now. Hemodynamically the patient actually has a great CI (4) but low SVR (685) I asked about turning dobutamine down, he would like it left on t/o the night though as he says the pt's EF is actually more like 20% vs what the intraoperative echo report says (45-50%). He would like the IABP kept at 1:1 for the night and he'll DC it in the AM. He would like the patient extubated tonight if he meets parameters and his CT output is 100 or less per hour, I had concerns given his long OR time, and inability to sit up due to IABP but he would still like us to try. The pt follows commands and is appropriate, a very low dose propofol was started for ventilator synchrony (OK'd by Dr. Moreno). He is now tolerating spontaneous just fine so propofol was turned off. If an antihypertensive is needed he would prefer Cardene over NTG for this pt given the radial graft. Dr. Moreno spoke to the patient's mom via phone after, no family in waiting room.
[2023-03-18] MEDS: albumin (Human) 5% 250ml 250 ML IV PRN (23:39)
[2023-03-18] MEDS: cefazolin 2gm/D5W 100mL 100 ML IV SCH (23:43)
[2023-03-18 23:56] LABS: BASOPHILS % (AUTO) 0.2 % (0-1); EOSINOPHILS % (AUTO) 0 % (0-6); HEMATOCRIT 28.8 % (42.0-52.0); HEMOGLOBIN 9.7 g/dl (14.0-17.9); LYMPHOCYTES # (AUTO) 0.4 X10'3 (1.1-4.8); LYMPHOCYTES % (AUTO) 4.1 % (21-51); MEAN CORPUSCULAR HEMOGLOBIN 29.5 PG (27.0-31.0); MEAN CORPUSCULAR HGB CONC 33.8 g/dL (33.0-36.5); MEAN CORPUSCULAR VOLUME 87.3 FL (78-98); MEAN PLATELET VOLUME 8.5 FL (7.4-10.4); MONOCYTES # (AUTO) 0.5 X10'3 (0-0.9); MONOCYTES % (AUTO) 4.9 % (2-12); NEUTROPHILS # (AUTO) 8.5 X10'3 (1.8-7.7); NEUTROPHILS % (AUTO) 90.8 % (42-75); PLATELET COUNT 157 X10'3 (140-440); RED CELL DISTRIBUTION WIDTH 13.7 % (11.5-14.5); WHITE BLOOD COUNT 9.3 X10'3 (4.5-11.0)
[2023-03-19] VITALS (34 sets, daily range): BP systolic 90–134; BP diastolic 37–82; PULSE 88–105; RESP 14–32; TEMP 99–99.1; O2SAT 92–97
--- NOTE | 2023-03-19 00:04 | NUR ---
notified of hypotension and that I gave 1 dose of Albumin 5%. I wasn't sure if he'd want to keep giving fluid or turn down dobutamine a little since again, his CI is on the high side and SVR low. At first he wanted to give 1 Unit PRBC but hgb has been 10 and bleeding has slowed actually. So for now he'd like to try another albumin and if that doesn't work give a unit of PRBC
[2023-03-19 00:09] LABS: ANION GAP 9 (8-16); BLOOD UREA NITROGEN 7 MG/DL (7-18); BUN/CREATININE RATIO 8.9 (10.0-20.0); CALCIUM 8.3 MG/DL (8.5-10.1); CHLORIDE 109 MMOL/L (99-107); CREATININE 0.79 MG/DL (0.60-1.10); GLUCOSE 114 MG/DL (70-104); MAGNESIUM 2.4 MG/DL (1.5-2.4); PHOSPHORUS 1.5 MG/DL (2.3-4.5); POTASSIUM 3.6 MMOL/L (3.5-5.1); SODIUM 141 MMOL/L (135-145); eCRCL 112 ML/MIN; eGFR > 90 ML/MIN
[2023-03-19] MEDS ORDERED: Neutra Phos packet PO PRN (00:20)
[2023-03-19] MEDS ORDERED: sodium phosphate inj. 30 MMOL in dextrose 5%-water 250 ML IV PRN (00:20)
[2023-03-19] MEDS ORDERED: sodium phosphate inj. 15 MMOL in dextrose 5%-water 250 ML IV PRN (00:20)
[2023-03-19] MEDS: potassium Cl 20mEq/100mL bag 100 ML IV PRN ×3 (00:22→05:14)
[2023-03-19] MEDS: magnesium 2GM in 50ml NS 50 ML IV PRN (00:22)
[2023-03-19] MEDS ORDERED: potassium Cl 40MEQ/270ML bag 270 ML IV PRN (00:30)
[2023-03-19] MEDS: morphine 4 MG/ML inj SYRINge IV PRN ×3 (00:33→20:24)
[2023-03-19 01:15] LABS: ABG BASE EXCESS -1.2 mmol/L (-2.0-2.0); ABG HCO3 22.8 mmol/L (22.0-26.0); ABG PCO2 (T) 35.9 mmHg (35.0-48.0); ABG PH (T) 7.423 (7.340-7.440); ABG PO2 (T) 70.4 mmHg (75.0-100.0); FCOHb 0.2 % (0.0-3.9); FMetHb 0.3 % (0.0-1.5); FO2Hb 93.5 % (94-97); MODE spont 7/5; PATIENT TEMPERATURE 37.5; TOTAL HEMOGLOBIN 10.3 G/dl (14.0-17.9)
[2023-03-19] MEDS: albumin (Human) 5% 250ml 250 ML IV PRN ×2 (01:40)
[2023-03-19] MEDS ORDERED: morphine 2 MG/ML inj. syringe IV ONE (02:10)
[2023-03-19] MEDS: HYDROcodone/acetaminophen 10/325mg tab PO PRN ×4 (03:18→23:54)
[2023-03-19] MEDS: niCARDipine-NS 40mg/200ml IVPB 200 ML IV SCH ×3 (03:35→18:34)
[2023-03-19 03:38] LABS: BASOPHILS % (AUTO) 0.5 % (0-1); EOSINOPHILS % (AUTO) 0 % (0-6); HEMOGLOBIN 10.2 g/dl (14.0-17.9); LYMPHOCYTES # (AUTO) 0.4 X10'3 (1.1-4.8); LYMPHOCYTES % (AUTO) 3.7 % (21-51); MEAN CORPUSCULAR HGB CONC 33.9 g/dL (33.0-36.5); MEAN CORPUSCULAR VOLUME 88.4 FL (78-98); MEAN PLATELET VOLUME 8.8 FL (7.4-10.4); MONOCYTES # (AUTO) 0.5 X10'3 (0-0.9); MONOCYTES % (AUTO) 4.8 % (2-12); NEUTROPHILS # (AUTO) 8.7 X10'3 (1.8-7.7); PLATELET COUNT 153 X10'3 (140-440); RED CELL DISTRIBUTION WIDTH 13.7 % (11.5-14.5); WHITE BLOOD COUNT 9.5 X10'3 (4.5-11.0)
[2023-03-19 03:49] LABS: APTT 27 SECONDS (22-32); FIBRINOGEN 390 MG/DL (177-424); INR 1.1 INR; PROTHROMBIN TIME 11.3 SECONDS (9.0-12.0)
[2023-03-19 03:59] LABS: ALANINE AMINOTRANSFERASE 57 U/L (12-78); ALBUMIN 3.4 G/DL (3.4-5.0); ALBUMIN/GLOBULIN RATIO 1.4 (1.1-1.5); ALKALINE PHOSPHATASE 74 IU/L (46-116); ANION GAP 8 (8-16); ASPARTATE AMINO TRANSFERASE 54 U/L (10-37); BILIRUBIN,TOTAL 0.9 MG/DL (0.1-1.0); BLOOD UREA NITROGEN 7 MG/DL (7-18); BUN/CREATININE RATIO 8.2 (10.0-20.0); CHLORIDE 108 MMOL/L (99-107); CREATININE 0.85 MG/DL (0.60-1.10); GLUCOSE 130 MG/DL (70-104); MAGNESIUM 2.5 MG/DL (1.5-2.4); PHOSPHORUS 2.6 MG/DL (2.3-4.5); POTASSIUM 4.4 MMOL/L (3.5-5.1); SODIUM 141 MMOL/L (135-145); TOTAL CARBON DIOXIDE 24.9 MMOL/L (24-32); TOTAL PROTEIN 5.8 G/DL (6.4-8.2); eCRCL 104 ML/MIN; eGFR > 90 ML/MIN
--- NOTE | 2023-03-19 05:42 | NUR ---
Notified MD of hypotension (monitor pressure: 99/39 MAP 59, IABP: 87/53 MAP 72 NOV 84), reviewed all labs and hemodynamics. Agrees to turning dobutamine down to 1.25mcg/kg/min. Give 1 gram calcium gluconate and 100ml 25% albumin
[2023-03-19] MEDS ORDERED: albumin (human) 25% 100 ML IV solution IV ONE ×2 (05:45→06:25)
[2023-03-19] MEDS ORDERED: CALCIUM GLUC 1gm/50ml NACL,iso 50 ML IV ONE (05:45)
--- NOTE | 2023-03-19 06:24 | NUR ---
Per Dr. Josh kiran to keep IABP at 1:2 Nov.
[2023-03-19] MEDS ORDERED: albumin (human) 25% 100ml IV 100 ML IV ONE (06:25)
--- NOTE | 2023-03-19 06:30 | NUR ---
Patient in room ICU 2040. I have received report from Seven AWAD and had the opportunity to ask questions and assume patient care.
[2023-03-19] MEDS: cefazolin 2gm/D5W 100mL 100 ML IV SCH ×3 (07:55→23:53)
[2023-03-19] MEDS: K and/or MAG REPLACEMENT MC SCH ×2 (08:00→18:43)
[2023-03-19] MEDS: metoprolol tartrate 12.5mg (1/2 tablet) PO SCH ×2 (08:00→19:54)
[2023-03-19] MEDS: mupirocin 2% nasal ointment 1gm UD NS SCH (08:00)
--- NOTE | 2023-03-19 08:00 | NUR ---
Dr Moreno by to round on patient new orders Dr. Moreno will D/C balloon pump new orders femstop for 1hr then release pressure to half and maintain for another hour at which time if there is no bleeding the femstop can be removed Patient to remain flat for 4hrs D/C dobutamine after femstop has been removed and CI is stable Hold lopressor for today Hold all po meds until patient is no longer laying flat
[2023-03-19] MEDS: morphine 2 MG/ML inj. syringe IV PRN (08:18)
--- NOTE | 2023-03-19 10:22 | NUR ---
Initial: Pt admit for NSTEMI. Per physician notes pt s/p cardiac cath 03/16 showing multi-vessel CAD. Pt currently POD #1 s/p CABG x 6, just extubated early this morning per EMR. Pt would benefit from post CABG nutrition therapy education along with DM education as appropriate. Noted pt with a low Aleksander of 12. Only wounds identified at this time are surgical wounds post CABG. Pt currently on a no concentrated sweets diet, pending documentation of PO intake. Prior to OR pt was eating fairly well, documented with average 72% PO intake of meals on heart healthy diet. LBM 03/15 per EMR. Pt with routine and PRN bowel care available. Will continue to follow closely and monitor need for nutrition intervention pending trends in PO intake post-op. Recommendations: 1) Continue no concentrated sweets diet; add CHO controlled restriction if pt with adequate PO intake and elevated blood sugars 2) Monitor need for ONS/additional protein 3) Routine bowel care 4) Weekly scaled weights 5) DM and post CABG nutrition therapy educations as appropriate; T2DM with A1c 11.9%, s/p CABG x 6 03/18, elevated lipid panel Addendum: 03/19/23 at [address] Amended: Links added.
[2023-03-19] MEDS: docusate sod 100mg capsule PO SCH ×2 (13:29→19:54)
[2023-03-19] MEDS: atorvastatin 20mg tablet PO SCH (13:30)
[2023-03-19] MEDS: aspirin 81mg tab.chew PO SCH (13:30)
[2023-03-19] MEDS: insulin Lispro (HumaLOG) vial - multi-dose SQ SCH ×3 (13:33→20:35)
--- NOTE | 2023-03-19 13:41 | NUR ---
WOC NOTE: Per medical records, this is a 57 year old male who presented to the ED with chest pain non-STEMI alert 03/15/23. Admit acute myocardial infarction. Patient is POD x 1 S/P CABG x 6, CELE, R ERA, L EVH. Past medical history significant for diabetes, CAD, hyperlipidemia. Social history; denies any tobacco, alcohol or IV drug abuse. Resides with family. Most recent labs WBC 9.5, H&H 10.2 & 30.0, glucose 148, albumin 3.4. Wound care in for skin assessment secondary to nursing consult for low radha score. The primary nurse at the bedside reports the patient just had the balloon pump pulled and cannot be turned at this time for skin assessment. WOC will continue to monitor progress and attempt skin assessment when stabilized.
--- NOTE | 2023-03-19 16:22 | NUR ---
Dr Moreno by to round on patient new orders lasix 40mg BID IV 40MEq potassium BID D/C donte keep art line till tomorrow 03/20/23
--- NOTE | 2023-03-19 18:15 | NUR ---
Problems reprioritized. Patient report given, questions answered & plan of care reviewed with Seven AWAD.
--- NOTE | 2023-03-19 18:25 | NUR ---
Spoke with Dr. landaverde, OK to pull A line after morning labs. Give the lasix now, if his BP holds steady OK to start lopressor tonight.
[2023-03-19] MEDS: furosemide 40mg/4ml inj IV SCH (18:32)
[2023-03-19] MEDS: potassium Cl 20 mEq SR tablet PO SCH (19:54)
[2023-03-19] MEDS: sennosides/docusate sodium tablet PO SCH (19:54)
[2023-03-19] MEDS: insulin glargine (Lantus) pen - multi-dose SQ SCH (20:36)
[2023-03-20] VITALS (28 sets, daily range): BP systolic 89–137; BP diastolic 55–80; PULSE 88–108; RESP 14–29; O2SAT 2–98
[2023-03-20 02:57] LABS: BASOPHILS % (AUTO) 0.4 % (0-1); EOSINOPHILS % (AUTO) 0 % (0-6); HEMATOCRIT 29.7 % (42.0-52.0); HEMOGLOBIN 9.8 g/dl (14.0-17.9); LYMPHOCYTES # (AUTO) 1.1 X10'3 (1.1-4.8); LYMPHOCYTES % (AUTO) 8.7 % (21-51); MEAN CORPUSCULAR HEMOGLOBIN 29.3 PG (27.0-31.0); MEAN CORPUSCULAR HGB CONC 33.1 g/dL (33.0-36.5); MEAN CORPUSCULAR VOLUME 88.7 FL (78-98); MEAN PLATELET VOLUME 9.3 FL (7.4-10.4); MONOCYTES # (AUTO) 1.1 X10'3 (0-0.9); MONOCYTES % (AUTO) 8.7 % (2-12); NEUTROPHILS # (AUTO) 10.2 X10'3 (1.8-7.7); NEUTROPHILS % (AUTO) 82.2 % (42-75); PLATELET COUNT 157 X10'3 (140-440); RED BLOOD COUNT 3.35 X10'6 (4.70-6.10); RED CELL DISTRIBUTION WIDTH 14.4 % (11.5-14.5); WHITE BLOOD COUNT 12.4 X10'3 (4.5-11.0)
[2023-03-20 03:05] LABS: ALANINE AMINOTRANSFERASE 43 U/L (12-78); ALBUMIN 3.5 G/DL (3.4-5.0); ALBUMIN/GLOBULIN RATIO 1.3 (1.1-1.5); ALKALINE PHOSPHATASE 102 IU/L (46-116); ANION GAP 4 (8-16); ASPARTATE AMINO TRANSFERASE 30 U/L (10-37); BILIRUBIN,TOTAL 0.6 MG/DL (0.1-1.0); BLOOD UREA NITROGEN 15 MG/DL (7-18); BUN/CREATININE RATIO 18.5 (10.0-20.0); CALCIUM 8.5 MG/DL (8.5-10.1); CHLORIDE 100 MMOL/L (99-107); CREATININE 0.81 MG/DL (0.60-1.10); GLUCOSE 234 MG/DL (70-104); MAGNESIUM 2.2 MG/DL (1.5-2.4); PHOSPHORUS 3.2 MG/DL (2.3-4.5); POTASSIUM 4.9 MMOL/L (3.5-5.1); SODIUM 134 MMOL/L (135-145); TOTAL CARBON DIOXIDE 29.6 MMOL/L (24-32); TOTAL PROTEIN 6.2 G/DL (6.4-8.2); eCRCL 109 ML/MIN; eGFR > 90 ML/MIN
[2023-03-20] MEDS: niCARDipine-NS 40mg/200ml IVPB 200 ML IV SCH (03:35)
[2023-03-20] MEDS: magnesium 2GM in 50ml NS 50 ML IV PRN ×2 (04:08→09:44)
[2023-03-20] MEDS: HYDROcodone/acetaminophen 10/325mg tab PO PRN ×4 (04:08→19:43)
[2023-03-20] MEDS: morphine 2 MG/ML inj. syringe IV PRN (05:06)
--- NOTE | 2023-03-20 06:30 | NUR ---
Report received from Seven AWAD via SBAR.
[2023-03-20] MEDS: K and/or MAG REPLACEMENT MC SCH ×2 (08:00→19:30)
--- NOTE | 2023-03-20 08:15 | NUR ---
Pt was OOB to chair and requested the commode. He transferred well, and had a small BM. He then went back to bed for breakfast, and ate well. IS of 1000.
[2023-03-20] MEDS: cefazolin 2gm/D5W 100mL 100 ML IV SCH (08:54)
[2023-03-20] MEDS: furosemide 40mg/4ml inj IV SCH ×2 (08:54→19:22)
[2023-03-20] MEDS: potassium Cl 20 mEq SR tablet PO SCH ×2 (08:55→19:22)
[2023-03-20] MEDS: docusate sod 100mg capsule PO SCH ×2 (08:55→19:21)
[2023-03-20] MEDS: aspirin 81mg tab.chew PO SCH (08:55)
[2023-03-20] MEDS: atorvastatin 20mg tablet PO SCH (08:56)
[2023-03-20] MEDS: metoprolol tartrate 12.5mg (1/2 tablet) PO SCH ×3 (09:11→21:00)
[2023-03-20] MEDS: sennosides/docusate sodium tablet PO SCH ×2 (09:11→19:21)
[2023-03-20] MEDS: metoclopramide 5 mg/ml inj IV SCH ×3 (09:12→19:20)
[2023-03-20] MEDS: insulin Lispro (HumaLOG) vial - multi-dose SQ SCH ×3 (09:43→19:28)
--- NOTE | 2023-03-20 11:31 | NUR ---
Pt ambulated approx 75 ft. w/ PT and monitor. O2 was increased to 4 L and when pt was back in chair , it was reduced to 2.5 L
[2023-03-20] MEDS ORDERED: potassium CL 10mEq/100ml bag 100 ML IV PRN (13:55)
[2023-03-20] MEDS ORDERED: magnesium 4gm in 100ml NS 100 ML IV PRN (13:55)
[2023-03-20] MEDS ORDERED: potassium Cl 40MEQ/1/2NS 520ml 520 ML IV PRN (13:55)
[2023-03-20] MEDS ORDERED: potassium Cl 20mEq/100mL bag 100 ML IV PRN (13:55)
[2023-03-20] MEDS ORDERED: magnesium 2GM in 50ml NS 50 ML IV PRN (13:55)
[2023-03-20] MEDS ORDERED: potassium Cl 20 mEq SR tablet PO PRN ×2 (13:55)
[2023-03-20] MEDS ORDERED: potassium Cl 40MEQ/270ML bag 250 ML IV PRN (13:55)
--- NOTE | 2023-03-20 15:17 | NUR ---
Nutrition consult: Pt POD #2 s/p CABG x 6. Will provide nutrition therapy education as able. Addendum: 03/20/23 at [address] Amended: Links added.
--- NOTE | 2023-03-20 15:30 | NUR ---
WOC NOTE: Per medical records, this is a 57 year old male who presented to the ED with chest pain non-STEMI alert 03/15/23. Admit acute myocardial infarction. Patient is POD x 1 S/P CABG x 6, CELE, R ERA, L EVH. Past medical history significant for diabetes, CAD, hyperlipidemia. Social history denies any tobacco, alcohol or IV drug abuse. Resides with family. Most recent labs WBC 12.4, H&H 9.8 & 29.7, blood glucose 221, albumin 3.5. Wound care in for skin assessment secondary to nursing consult for low radha score. The patient was unable to be assessed the day prior as the primary nurse stated the balloon pump was just pulled. Today the patient was sitting up in a chair watching TV. The primary nurse stated he was no longer a skin risk, he was ambulatory and had no skin breakdown. WOC will not follow.
--- NOTE | 2023-03-20 18:32 | NUR ---
Patient in room ICU 2040. I have received report from Chrystal AWAD and had the opportunity to ask questions and assume patient care.
--- NOTE | 2023-03-20 18:32 | NUR ---
Report given to Nirali AWAD via SBAR.
[2023-03-20] MEDS: magnesium Cl slow-release 64mg tablet PO SCH (19:21)
[2023-03-20] MEDS: insulin glargine (Lantus) pen - multi-dose SQ SCH (21:30)
[2023-03-21] VITALS (25 sets, daily range): BP systolic 57–124; BP diastolic 57–83; PULSE 89–120; RESP 13–28; TEMP 98.1; O2SAT 86–100
[2023-03-21] MEDS: metoclopramide 5 mg/ml inj IV SCH ×4 (02:35→20:00)
--- NOTE | 2023-03-21 06:20 | NUR ---
Problems reprioritized. Patient report given, questions answered & plan of care reviewed with Vandana AWAD.
--- NOTE | 2023-03-21 06:27 | NUR ---
Patient in room ICU 2040. I have received report from DELMI Campoverde and had the opportunity to ask questions and assume patient care.
[2023-03-21 06:28] LABS: BASOPHILS % (AUTO) 0.1 % (0-1); EOSINOPHILS % (AUTO) 0.3 % (0-6); HEMATOCRIT 31.8 % (42.0-52.0); HEMOGLOBIN 10.6 g/dl (14.0-17.9); LYMPHOCYTES # (AUTO) 2.1 X10'3 (1.1-4.8); LYMPHOCYTES % (AUTO) 17.7 % (21-51); MEAN CORPUSCULAR HEMOGLOBIN 29.4 PG (27.0-31.0); MEAN CORPUSCULAR HGB CONC 33.2 g/dL (33.0-36.5); MEAN CORPUSCULAR VOLUME 88.6 FL (78-98); MEAN PLATELET VOLUME 9.3 FL (7.4-10.4); MONOCYTES # (AUTO) 1.1 X10'3 (0-0.9); MONOCYTES % (AUTO) 9.6 % (2-12); NEUTROPHILS # (AUTO) 8.6 X10'3 (1.8-7.7); NEUTROPHILS % (AUTO) 72.3 % (42-75); PLATELET COUNT 171 X10'3 (140-440); RED BLOOD COUNT 3.59 X10'6 (4.70-6.10); RED CELL DISTRIBUTION WIDTH 14.1 % (11.5-14.5); WHITE BLOOD COUNT 11.9 X10'3 (4.5-11.0)
[2023-03-21 06:47] LABS: ALBUMIN 3.2 G/DL (3.4-5.0); ANION GAP 7 (8-16); BLOOD UREA NITROGEN 17 MG/DL (7-18); CALCIUM 8.7 MG/DL (8.5-10.1); CHLORIDE 98 MMOL/L (99-107); CREATININE 0.74 MG/DL (0.60-1.10); GLUCOSE 118 MG/DL (70-104); MAGNESIUM 1.9 MG/DL (1.5-2.4); PHOSPHORUS 3.4 MG/DL (2.3-4.5); SODIUM 136 MMOL/L (135-145); TOTAL CARBON DIOXIDE 30.7 MMOL/L (24-32); eCRCL 119 ML/MIN; eGFR > 90 ML/MIN
[2023-03-21] MEDS: furosemide 40mg/4ml inj IV SCH ×2 (07:41→20:00)
[2023-03-21] MEDS: aspirin 81mg tab.chew PO SCH (07:42)
[2023-03-21] MEDS: potassium Cl 20 mEq SR tablet PO SCH ×2 (07:42→20:01)
[2023-03-21] MEDS: metoprolol tartrate 12.5mg (1/2 tablet) PO SCH (07:42)
[2023-03-21] MEDS: magnesium Cl slow-release 64mg tablet PO SCH ×2 (07:42→20:00)
[2023-03-21] MEDS: atorvastatin 20mg tablet PO SCH (07:42)
[2023-03-21] MEDS: docusate sod 100mg capsule PO SCH ×2 (07:42→20:00)
[2023-03-21] MEDS: sennosides/docusate sodium tablet PO SCH ×2 (07:43→20:00)
[2023-03-21] MEDS: HYDROcodone/acetaminophen 10/325mg tab PO PRN ×2 (07:43→17:25)
[2023-03-21] MEDS: K and/or MAG REPLACEMENT MC SCH ×2 (08:00→19:04)
--- NOTE | 2023-03-21 08:10 | NUR ---
CT's DC'd by Nacho YAÑEZ. Pt tolerated well.
[2023-03-21] MEDS: metoprolol tartrate 25mg tablet PO SCH ×2 (08:15→20:01)
[2023-03-21] MEDS: insulin Lispro (HumaLOG) vial - multi-dose SQ SCH ×3 (08:58→19:00)
[2023-03-21] MEDS ORDERED: metoprolol tartrate 12.5mg (1/2 tablet) PO ONE (09:00)
--- NOTE | 2023-03-21 13:56 | NUR ---
FC DC'd at 1320
--- NOTE | 2023-03-21 16:53 | NUR ---
Diabetes and CABG consult: Pt presents with an A1c of 11.9% , elevated lipid panel and is CABG x 6 POD# 3 per EMR. Pt seen at bedside for verbal/written heart healthy/high protein and diabetes nutrition education. Pt states he does not have a PCP , will notify CM. RD contact also provided and encouraged pt to reach out for any nutrition questions or concerns. Addendum: 03/21/23 at [address] Amended: Links added.
--- NOTE | 2023-03-21 18:15 | NUR ---
Patient in room ICU 2040. I have received report from Vandana AWAD and had the opportunity to ask questions and assume patient care.
--- NOTE | 2023-03-21 18:19 | NUR ---
Problems reprioritized. Patient report given, questions answered & plan of care reviewed with DELMI Campoverde.
--- NOTE | 2023-03-21 20:50 | NUR ---
Patient report given to Salas AWAD. Patient transferred to bed 3013 PCU in very stable condition via wheelchair. Dressing to surgical site removed per CABG protocol upon arrival, site CDI with no drainage noted. All belongings left at bedside with patient.
[2023-03-21] MEDS: insulin glargine (Lantus) pen - multi-dose SQ SCH (21:19)
[2023-03-22 02:00] VITALS: BP 109/69; PULSE 96; RESP 18; TEMP 98.4; O2SAT 96
[2023-03-22] MEDS: metoclopramide 5 mg/ml inj IV SCH (02:00)
[2023-03-22 06:00] VITALS: BP 116/67; PULSE 99; RESP 18; TEMP 98.1; O2SAT 96
--- NOTE | 2023-03-22 06:20 | NUR ---
Patient in room PCU 3013A. I have received report from [facility] RN, Salas, and had the opportunity to ask questions and assume patient care. Pt is sleeping in bed, in no apparent distress.
[2023-03-22 06:58] LABS: BASOPHILS % (AUTO) 0.4 % (0-1); EOSINOPHILS # (AUTO) 0.1 X10'3 (0-0.9); HEMATOCRIT 34.2 % (42.0-52.0); HEMOGLOBIN 11.5 g/dl (14.0-17.9); LYMPHOCYTES # (AUTO) 1.8 X10'3 (1.1-4.8); LYMPHOCYTES % (AUTO) 18.7 % (21-51); MEAN CORPUSCULAR HEMOGLOBIN 29.7 PG (27.0-31.0); MEAN CORPUSCULAR HGB CONC 33.6 g/dL (33.0-36.5); MEAN CORPUSCULAR VOLUME 88.3 FL (78-98); MEAN PLATELET VOLUME 8.5 FL (7.4-10.4); MONOCYTES # (AUTO) 1.1 X10'3 (0-0.9); MONOCYTES % (AUTO) 10.9 % (2-12); NEUTROPHILS # (AUTO) 6.8 X10'3 (1.8-7.7); PLATELET COUNT 243 X10'3 (140-440); RED BLOOD COUNT 3.87 X10'6 (4.70-6.10); RED CELL DISTRIBUTION WIDTH 13.9 % (11.5-14.5); WHITE BLOOD COUNT 9.9 X10'3 (4.5-11.0)
[2023-03-22 07:14] LABS: ALBUMIN 3.1 G/DL (3.4-5.0); ANION GAP 7 (8-16); BLOOD UREA NITROGEN 18 MG/DL (7-18); BUN/CREATININE RATIO 21.7 (10.0-20.0); CALCIUM 9.2 MG/DL (8.5-10.1); CHLORIDE 98 MMOL/L (99-107); CREATININE 0.83 MG/DL (0.60-1.10); GLUCOSE 162 MG/DL (70-104); MAGNESIUM 1.8 MG/DL (1.5-2.4); PHOSPHORUS 4.4 MG/DL (2.3-4.5); POTASSIUM 4.1 MMOL/L (3.5-5.1); SODIUM 135 MMOL/L (135-145); TOTAL CARBON DIOXIDE 30.2 MMOL/L (24-32); eCRCL 106 ML/MIN; eGFR > 90 ML/MIN
[2023-03-22 08:00] VITALS: RESP 18
[2023-03-22] MEDS: K and/or MAG REPLACEMENT MC SCH (08:00)
[2023-03-22] MEDS ORDERED: spironolactone 25 MG tablet PO SCH (08:30)
[2023-03-22] MEDS: insulin Lispro (HumaLOG) vial - multi-dose SQ SCH (08:33)
[2023-03-22] MEDS: furosemide 40mg/4ml inj IV SCH (08:38)
[2023-03-22] MEDS: aspirin 81mg tab.chew PO SCH (08:39)
[2023-03-22] MEDS: atorvastatin 20mg tablet PO SCH (08:39)
[2023-03-22] MEDS: potassium Cl 20 mEq SR tablet PO SCH (08:39)
[2023-03-22] MEDS: HYDROcodone/acetaminophen 10/325mg tab PO PRN (08:39)
[2023-03-22] MEDS: magnesium Cl slow-release 64mg tablet PO SCH (08:39)
[2023-03-22] MEDS: metoprolol tartrate 25mg tablet PO SCH (08:43)
[2023-03-22] MEDS: sennosides/docusate sodium tablet PO SCH (08:44)
[2023-03-22] MEDS: docusate sod 100mg capsule PO SCH (08:44)
--- NOTE | 2023-03-22 08:47 | NUR ---
Reassessment: Pt continues on NCS diet and eating well, documented with average 86% PO intake of meals since 03/19 meeting 94% estimated energy needs and 86% estimated protein needs. D/w RN 03/21 recommendation for CHO controlled diet to better manage blood sugars. Per RN patient's Lantus rx to increase though to pass along message regarding diet order to oncoming RN. BG more controlled today. LBM 03/20 per EMR. Pt has received multiple bowel care medications as previous BM was 03/15. Bowel care medications remain available. No nutrition intervention implemented at this time. Will continue to follow and make recommendations as appropriate. Recommendations: 1) Continue no concentrated sweets diet; add CHO controlled restriction if pt with elevated blood sugars 2) Monitor need for ONS/additional protein 3) Routine bowel care 4) Weekly scaled weights Addendum: 03/22/23 at [address] Amended: Links added.
[2023-03-22] MEDS ORDERED: ASPI81TA53 PO (10:47)
[2023-03-22] MEDS ORDERED: HYDR-3972 PO (10:47)
[2023-03-22] MEDS ORDERED: SPIR25TA PO (10:47)
[2023-03-22] MEDS ORDERED: AMI200T PO (10:47)
[2023-03-22] MEDS ORDERED: FURO40TA4 PO (10:47)
[2023-03-22] MEDS ORDERED: ATOR20TA66 PO (10:47)
[2023-03-22] MEDS ORDERED: LOP25T PO (10:47)
[2023-03-22] MEDS ORDERED: METF-438 PO (10:50)
[2023-03-22 11:00] VITALS: BP 97/70; PULSE 91; RESP 20; TEMP 98.1; O2SAT 96
--- NOTE | 2023-03-22 12:24 | NUR ---
assisting RN with pt care. IV to left hand dc'd, cannula intact, pt is trying to call mother, Rosibel, , left message he needs a ride home. His cell phone is and being charged at nurse's station. Pt verbalized understanding dc instructions, no questions. Report to Linn, harsha RN
[2023-03-22 13:03] LABS: ALANINE AMINOTRANSFERASE 34 U/L (12-78); ALBUMIN 3.3 G/DL (3.4-5.0); ALBUMIN/GLOBULIN RATIO 0.8 (1.1-1.5); ALKALINE PHOSPHATASE 242 IU/L (46-116); ASPARTATE AMINO TRANSFERASE 23 U/L (10-37); BILIRUBIN,DIRECT 0.3 MG/DL (0-0.3); BILIRUBIN,TOTAL 0.9 MG/DL (0.1-1.0); FREE T4 (FREE THYROXINE) 1.13 NG/DL (0.73-1.40); THYROID STIMULATING HORMONE 0.58 ulU/ml (0.34-4.50); TOTAL PROTEIN 7.3 G/DL (6.4-8.2)
--- NOTE | 2023-03-22 15:00 | NUR ---
Rec'd report from another RN Danielle that pt dc'd home with friend at 1445. PIV had been removed by DELMI Merritt. DC instructions had been explained to pt and pt verbalized understanding by DELMI Merritt. Pt had belongings, was A&O x4, and in no apparent distress.
[2023-03-22] MEDS ORDERED: enoxaparin 40mg/0.4ml syringe SUBCUT SCH (20:00)
[2023-03-22] MEDS ORDERED: furosemide 40mg tablet PO SCH (20:00)
[2023-03-22] MEDS ORDERED: amiodarone 200mg tablet PO SCH (20:00)
== END 2023-03-22 14:45 | disposition home health service (06) | DRG 166 ==
LOC: ER 16:45 → ED HOLD 19:35 → EDBEDREQ 21:17 → PCU 3S 21:45 → ICU 2S 03-16 12:13 → PCU 3S 03-21 20:51
PROVIDERS: ADMIT Internal Medicine; ATTEND Family Medicine
PROC: B32T1ZZ Computerized Tomography (CT Scan) of Left Pulmonary Artery using Low Osmolar Contrast (ICD-10-PCS; 2023-03-15)
PROC: B3201ZZ Computerized Tomography (CT Scan) of Thoracic Aorta using Low Osmolar Contrast (ICD-10-PCS; 2023-03-15)
PROC: B32S1ZZ Computerized Tomography (CT Scan) of Right Pulmonary Artery using Low Osmolar Contrast (ICD-10-PCS; 2023-03-15)
PROC: 5A02210 Assistance with Cardiac Output using Balloon Pump, Continuous (ICD-10-PCS; 2023-03-16)
PROC: 4A023N7 Measurement of Cardiac Sampling and Pressure, Left Heart, Percutaneous Approach (ICD-10-PCS; 2023-03-16)
PROC: B2111ZZ Fluoroscopy of Multiple Coronary Arteries using Low Osmolar Contrast (ICD-10-PCS; 2023-03-16)
PROC: B2151ZZ Fluoroscopy of Left Heart using Low Osmolar Contrast (ICD-10-PCS; 2023-03-16)
PROC: B41F1ZZ Fluoroscopy of Right Lower Extremity Arteries using Low Osmolar Contrast (ICD-10-PCS; 2023-03-16)
PROC: 02100Z8 Bypass Coronary Artery, One Artery from Right Internal Mammary, Open Approach (ICD-10-PCS; 2023-03-18)
PROC: 021309W Bypass Coronary Artery, Four or More Arteries from Aorta with Autologous Venous Tissue, Open Approach (ICD-10-PCS; 2023-03-18)
PROC: 30233N1 Transfusion of Nonautologous Red Blood Cells into Peripheral Vein, Percutaneous Approach (ICD-10-PCS; 2023-03-18)
PROC: 30233R1 Transfusion of Nonautologous Platelets into Peripheral Vein, Percutaneous Approach (ICD-10-PCS; 2023-03-18)
PROC: 06BQ4ZZ Excision of Left Saphenous Vein, Percutaneous Endoscopic Approach (ICD-10-PCS; 2023-03-18)
PROC: 02100Z9 Bypass Coronary Artery, One Artery from Left Internal Mammary, Open Approach (ICD-10-PCS; 2023-03-18)
PROC: 5A1221Z Performance of Cardiac Output, Continuous (ICD-10-PCS; 2023-03-18)
PROC: B24BZZ4 Ultrasonography of Heart with Aorta, Transesophageal (ICD-10-PCS; 2023-03-18)
PROC: 30233K1 Transfusion of Nonautologous Frozen Plasma into Peripheral Vein, Percutaneous Approach (ICD-10-PCS; principal; 2023-03-18 08:07)
PROC: 5A0935A Assistance with Respiratory Ventilation, Less than 24 Consecutive Hours, High Flow/Velocity Cannula (ICD-10-PCS; 2023-03-19)
DX: I25.10 Atherosclerotic heart disease of native coronary artery without angina pectoris (principal); R57.0 Cardiogenic shock; I21.4 Non-ST elevation (NSTEMI) myocardial infarction; I50.21 Acute systolic (congestive) heart failure; E11.9 Type 2 diabetes mellitus without complications; E78.5 Hyperlipidemia, unspecified; I25.5 Ischemic cardiomyopathy; Z95.5 Presence of coronary angioplasty implant and graft; Z80.0 Family history of malignant neoplasm of digestive organs; Z80.1 Family history of malignant neoplasm of trachea, bronchus and lung
CPT/HCPCS: 0232T; 33967; 36415; 36430; 36600; 71045; 71275; 80048; 80053; 80061; 80076; 80305; 81001; 82330; 82435; 82803; 82947; 82948; 83036; 83605; 83735; 83880; 84100; 84132; 84145; 84295; 84439; 84443; 84484; 85018; 85025; 85347; 85384; 85610; 85730; 86885; 86900; 86901; 86920; 87081; 93005; 93306; 93312; 93325; 93458; 93880; 93930; 93970; 94002; 94668; 94760; 97110; 97116; 97161; 97530; 99152; 99153; 99291; A4333; A4615; A4618; A6213; A6258; A6402; A6446; A6449; A7000; A7526; C1725; C1751; C9290; G0378; J0171; J0282; J0610; J0690; J1250; J1642; J1644; J1815; J1940; J2060; J2150; J2250; J2270; J2274; J2405; J2440; J2704; J2720; J2765; J2930; J3010; J3246; J3370; J3475; J3480; J3490; J7030; J7040; J7050; J7060; J7120; P9016; P9035; P9045; P9047; P9059; Q9967; S0020